=== PATIENT | male | born 1945 | race Caucasian/White ===

== ENCOUNTER 2023-08-18 06:04 | Inpatient (IN) | payer MEDICARE, OTHER, SELFPAY ==
[2023-08-10 09:23] VITALS: BMI 31.8
[2023-08-18] VITALS (14 sets, daily range): BP systolic 131–160; BP diastolic 59–87; PULSE 65–88; RESP 12–23; TEMP 35.7–36.6; O2SAT 92–97; BMI 31.8
--- NOTE | 2023-08-18 | DI.RAD.S_ITS ---
PROCEDURE: XR LUMBAR SPINE 2-3V INDICATIONS: L3-4 L4-5 TLIF TECHNIQUE: 3 views of the lumbar spine were acquired. COMPARISON: [facility], CT, CT LUMBAR SPINE WITHOUT CONTRAST, 07/27/2023, 7:17. [facility], MR, MR LUMBAR SPINE WITHOUT CONTRAST, 06/17/2023, 17:37. [facility], CR, XR LUMBAR SPINE 2 OR 3 VIEWS, 04/28/2022, 16:36. FINDINGS: Intraoperative images demonstrating posterior fusion from L3 through L5 with intervertebral spacers. Hardware is intact. There is good anatomic alignment. IMPRESSION: Intraoperative fusion as above. Dictated by: Jacy Hernandez M.D. on 08/18/2023 at 16:56 Approved by: Jacy Hernandez M.D. on 08/18/2023 at 16:57
[2023-08-18] MEDS: LACTATED RINGERS 1,000 ML 42 ML IV ×3 (07:00→13:49)
[2023-08-18] MEDS: ACETAMINOPHEN 325 MG TABLET 975 MG PO (07:02)
--- NOTE | 2023-08-18 07:36 | PM.PREOP ---
Pre-operative Note Interval Note History & Physical reviewed/Exam performed by Physician: Yes Changes to H&P: No
[2023-08-18] MEDS: CEFAZOLIN 2 GM/100 ML PREMIX 100 ML IV ×3 (07:40→23:21)
--- NOTE | 2023-08-18 08:15 | SUR.OPER ---
Prone on spine table, head in foam head support, padded chest and pelvic supports, gel pad at knees, lower legs supported by pillows; nipples, genitalia and toes free of pressure, arms secured on foam padded arm boards at <90 degrees abduction. Tape over blanket at thigh secured to table.
[2023-08-18] MEDS: BUPIVACAINE 0.25% (PF) 30 ML, EPINEPHrine 0.15 MG INJ (09:00)
[2023-08-18] MEDS: BUPIVACAINE LIPOSOME 266 MG/20 ML VIAL INJ (12:29)
--- NOTE | 2023-08-18 12:44 | PM.OP.1 ---
Operative Date/Time/Diagnoses Date of procedure: 08/18/23 Time of procedure: 07:40 Pre-op diagnosis: 1. L3-4, L4-5 spinal stenosis with neurogenic claudication. 2. L4-5 epidural cyst 3. L3-4, L4-5 foramen stenosis Post-op diagnosis: same Procedure & Clinicians Procedure: 1. L3-4, L4-5 Postero-lateral and posterior interbody fusion 2. L3-4, L4-5 interbody cage placement. 3. L3-4, L4-5 decompressive laminectomy with bilateral facetecomies 4. L4-5 epidural cyst excision with total facetecomy for decompression 5. L3-4, L4-5 Posterior segmental instrumentation 6. [place] of bone marrow from iliac crest 7. Utilization of microsurgical technique and operating microscope 8. Utilization of robotic assisted navigation Same procedure as scheduled: Yes Indications: Patient has been having chronic back pain and worsening lumbar radiculopathy and symptoms of neurogenic claudication. The patient has MRI showing severe spinal stenosis centrally and in the neural foramen bilaterally at L3-4 L4-5 level correlating with the patient's symptoms. The patient also has a large L4-5 epidural facet cyst on the right side causing additional lateral recess and central stenosis. Patient failed multiple conservative management with worsening pain weakness and numbness in his lower extremity. Patient has been having difficulty performing activity of daily living. After discussing risks benefits of treatment options, patient elected proceed with surgery. Surgeon: Hugo Gambino Public Affairs Manager: Elisa Hernandez Click Yes if Unassisted: No Anesthesia Type: General Operative Notes Closure Type: primary Specimen(s): none sent Prosthetic devices, grafts, tissues, transplants, or devices: Globus CREO MIS screws, Rise cages Applied: catheter Estimated Blood Loss (mL): 300 Blood products transfused: none Procedure in detail: Patient was seen in the preoperative area. Risks and benefits of the surgery was discussed with the patient. Informed consent was obtained from the patient and placed in the chart. Surgical site was marked. Patient was taken to the operative room. General anesthesia was administered. Prophylactic antibiotic was given to the patient less than 30 min before the incision was made. Patient was placed into a prone position on the Saleem table. Patient's back was then prepped and draped in the sterile fashion. Time-out was performed at this time. After patient was prepped and draped, patient's PSIS was palpated and marked bilaterally. Small 1 cm incision was made over the PSIS for placement of the reference probes. Two trocar was placed into the PSIS 1 on each side. The reference probe was attached to the trocar of the reference apparatus. At this time the C-arm imaging was used to confirm AP and lateral of L3, L4-L5 vertebrae and merged the C-arm imaging using the Cantimer robotic navigation system with the CT of the lumbar spine. After successful merging was completed and confirmed, skin marker was used to john out the skin incision using the Cantimer robotic arm. Bilateral incision was made at this time. Pre templated trajectory was used and guided using the Cantimer robotic navigation system for bilateral L3 L4, L5 pedicle screw placement. This was done by using the robotic arm to guide the high-speed bur to make a cortical entry point. Next a drill was placed also using the robotic arm and guided using the navigation system drilling partially through bilateral L3, L4, L5 pedicles. Next L3, L4, L5 pedicle screws it was pre templated and measured was placed onto the power commercial driver and inserted into the pedicles bilaterally. After all 6 screws were placed C-arm imaging was taken of both AP and lateral to confirm the placement. Excellent placement of the screws were confirmed and a matched precisely with the pre planned screw placement using the navigation system. MARs retractor was inserted using Quantum Dielectrricsivation guidence. Globus MARS retractors was placed inside the incision and docked onto the L3, L4 lamina. Using microsurgical technique and operating microscope, a L3, L4 laminectomy and L3-4, L4-5 facetectomy was performed using a Kerrison rongeur. The laminectomy and facetectomy was performed in order to decompress patient's cauda equina as well as the nerve roots exiting at the L3-4, L4-5 level. Patient was found have severe central stenosis, lateral recess and neural foramen stenosis which was fully decompressed after the laminectomy facetectomy. More than 75% of the facets were removed during the process of decompression rendering L3-4, L4-5 level grossly unstable and required a fusion procedure at the same time. Additionally, the L4-5 required extended facetectomy on the right side along with laminectomy to access and decompress the epidural cyst. The cyst was removed using Kerrison rongeur and pituitary under direct visualization. A neural probe was used to palpate the epidural space, the space was fully decompressed after the laminectomy facetectomy and cyst excision was performed at both levels of L3-4 L4-5. The disc space at L3-4, L4-5 was identified, and a total diskectomy was performed at L3-4, L4-5 level. The endplates were decorticated using a rasp and shaver. The total diskectomy and decortication was performed at L3-4, L4-5 level in order to to accomplish a L3-4, L4-5 fusion. The local bone from the laminectomy and facetectomy was saved for local bone grafting. After the total diskectomy and decortication was completed, Viacel bone graft material was combined with local bone that was harvested earlier. At this time, a separate skin is incision was made over the iliac crest. A Jamshidi needle was inserted into the iliac crest through a separate skin incision. 5 cc of bone marrow aspiration was obtained through the separate skin incision using a Jamshidi needle from the iliac crest. The bone marrow aspiration was combined with local bone and the Viacel bone grafting material. The bone grafting material was placed into the L3-4, L4-5 interbody space along with expandable cages. One cage each was inserted into the L3-4 L4-5 interbody space along with bone graft material. The cage was expanded to its maximum height using the torque limiting screwdriver. The disc preparation as well as the cage insertion were also performed under navigation guidance. After the cage was placed, AP and lateral C-arm imaging was taken to confirm placement of the cage and excellent position was confirmed. Globus MARS retractor was inserted and docked onto the L3-4, L4-5 posterolateral gutter on the right side. Using the power drill, posterior-lateral decortication was performed at L3-4, L4-5 level until bleeding cortical bone was identified. The remaining bone grafting material was placed into the L3-4, L4-5 posterior lateral gutter he order to accomplish posterolateral fusion at the L3-4, L4-5 level. At this time the tulips were attached to the L3, L4-L5 pedicle screw shanks. After measuring the length of the rods, they were inserted into the tulips of the pedicle screws and locked in place using locking caps and torque limiting screwdriver bilaterally. Total 6 caps and 2 titanium rods was used in order to complete the posterior instrumentation construct. After all the hardware was placed, and confirmed with AP and lateral C-arm imaging, the wound was then irrigated with sterile normal saline and packed with Ray-Saurabh gauze for 3 min to accomplish hemostasis. After the gauze was removed the deep fascia was closed with #1 Vicryl suture. The subcutaneous layer was closed with 2-0 Vicryl. The skin was closed with skin andra. Patient tolerated the procedure well. There were no complications. Neuro monitoring system was used to monitor patient's neurologic status throughout entire procedure. There was no disturbance of the neural monitoring signals throughout the case. The Operation could not have been safely performed without compromising the technical result or length of the procedure, without the assistance of a skilled assistant professor of biology. The assistant professor of biology was medically necessary for proper positioning, retraction and manipulation of instruments, proper exposure, surgical preparation, and manipulation of tissue. Complications: none Post-operative Condition: stable Disposition: PACU Plan for aftercare: Admit to inpatient hospital
[2023-08-18] MEDS: OXYCODONE IR 5 MG TABLET PO ×4 (13:57→23:21)
[2023-08-18] MEDS: HYDROMORPHONE 0.5 MG INJ IV (14:32)
[2023-08-18] MEDS: LACTATED RINGERS 1,000 ML 125 ML IV ×2 (14:35→21:48)
--- NOTE | 2023-08-18 15:40 | OT.IPNOTE ---
Went to attempt OT eval and pt still groggy and not able state his home set-up. Able to notify pt's nurse of his complaints of neck pain. To check on the pt tomorrow.
[2023-08-18] MEDS: ONDANSETRON 4 MG/2 ML INJ IV (15:59)
[2023-08-18] MEDS: ACETAMINOPHEN 325 MG TABLET 650 MG PO ×2 (17:36→23:21)
--- NOTE | 2023-08-18 19:02 | PC.NURSE ---
Day shift: Offered ambulation with patient this evening before dinner. Patient stated he wanted to wait a bit - he didn't feel ready to get out of bed. Allen patent. Pain well controlled with oral pain medications. Dressing on back CDI. Pt had one episode of n/v, IV zofran given. Pt stated he felt better. Pt complains of mild neck pain which comes and goes and improves with ice and repositioning. Will continue to monitor.
[2023-08-18] MEDS: SENNOSIDES 8.6 MG TABLET 17.2 MG PO (20:34)
[2023-08-18] MEDS: DOCUSATE 100 MG CAPSULE PO (20:34)
[2023-08-19] MEDS: ACETAMINOPHEN 325 MG TABLET 650 MG PO (04:33)
[2023-08-19] MEDS: OXYCODONE IR 5 MG TABLET PO ×4 (04:34→16:05)
[2023-08-19 05:33] LABS: Hematocrit 35.7 % (41-53); Hemoglobin 12.2 g/dL (13.5-17.5)
[2023-08-19] MEDS: LACTATED RINGERS 1,000 ML 125 ML IV (06:03)
[2023-08-19] MEDS: ONDANSETRON 4 MG/2 ML INJ IV (06:47)
[2023-08-19 08:00] VITALS: BP 140/58; PULSE 73; RESP 16; TEMP 36.4; O2SAT 96
[2023-08-19] MEDS: DOCUSATE 100 MG CAPSULE PO (09:12)
[2023-08-19] MEDS: ATORVASTATIN 20 MG TABLET PO (09:12)
[2023-08-19] MEDS: hydroCHLOROthiazide 25 MG TABLET PO (09:12)
[2023-08-19] MEDS: METFORMIN HCL 500 MG TABLET 1500 MG PO (09:12)
[2023-08-19] MEDS: lisinopriL 20 MG TABLET 40 MG PO (09:12)
--- NOTE | 2023-08-19 10:20 | OT.IP.EVAL ---
Current Diagnoses Spondylolisthesis, lumbar region (08/18/23) Spinal stenosis, lumbar region with neurogenic claudication (08/18/23) Surgery Performed Operation Date: 08/18/23 07:45 Actual Procedures p L3-4, L4-5 TLIF with posterior instrumentation - robot - Hugo Gambino MD Past Medical History (Last Updated 08/10/23 @ 10:16 by Pina Claros, RN) Diabetes Hearing loss HLD (hyperlipidemia) HTN (hypertension) Myocardial infarct, old (~2013) Numbness and tingling of both feet Sciatica Skin cancer (~1973) Spinal stenosis Surgical History (Last Updated 08/10/23 @ 10:13 by Pina Claros RN) History of cataract extraction Hx of cholecystectomy Hx of unilateral orchiectomy (~1978) Occupational Therapy Inpatient Evaluation/Re-Eval M1 PT/OT-IP Prior Functional Status Start: 08/19/23 08:03 Freq: NEEDED Status: Active Protocol: Document 08/19/23 11:11 [facility] (Rec: 08/19/23 11:25 [facility] [id number]) Medical Review Prior Functional Status Medical History Reviewed Yes Diet/Fluid Consistency Regular Communication WNL Mobility and Gait I with all mobility and gait without AD but had pain. Activities of Daily Living and IADL's pt was able to perform all ADL 's I without AD, caregiver for Social History Household Members spouse Living Arrangements House Number of Floors (Floors) Two Floors Number of Stairs To Enter/Railing? 3 steps with right rail in and 2 steps no rails from the garage Split level house with add-on Home Environment High Toilet,Walk in Shower, Bidet Home Equipment Front Wheel Walker,Straight Cane,Raised Toilet Seat Without Armrests,Shower Seat without Backrest,Hand Held Shower,Software Engineer Advisor,Sock Aid Employment Status Retired Additional Social History Comment 3 steps going in main entrance with R railing and 2 steps going in back of house without railing. Pt stated that his daughter is planning on installing a hand held shower currently Pt's daughter to stay with the pt for one week and if needing other family member can assist afterwards. M2 OT-IP Current Condition Start: 08/19/23 11:10 Freq: Status: Active Protocol: Document 08/19/23 11:11 [facility] (Rec: 08/19/23 11:25 [facility] [id number]) Occupational Therapy Current Condition Current Condition Evaluation Date 08/19/23 Treatment Diagnosis S/P L 3-4, L4-5 TLIF Post Operative Precautions Lumbar Precautions Log Roll,No Twisting,Limit Bending,Lifting Restriction of 10 lbs,Gait Belt above Incisional Area M3 OT- IP Subjective and Pain Start: 08/19/23 11:10 Freq: Status: Active Protocol: Document 08/19/23 11:11 [facility] (Rec: 08/19/23 11:25 [facility] [id number]) OT- Subjective Occupational Therapy Visit Type Type Initial Evaluation Visit Start Time 09:10 Visit Stop Time 10:20 Occupational Therapy Visit Comments Patient Comments Pt agreed to do a shower and pt's daughter present for caregiver training. Patient/Caregiver Goals To go home. OT Pain Assessment Pain When Pain Assessed During Mobility Pain Present Pain Present Pain Reported Location lower back Intensity 4 Scale Used Numeric (0 - 10) M4 OT- IP ADL's Start: 08/19/23 11:10 Freq: Status: Active Protocol: Document 08/19/23 11:11 [facility] (Rec: 08/19/23 11:25 [facility] [id number]) OT PFW-[id number]-[id number] General Evaluation Self-Feeding Ability Independent OT ADL-Grooming General Evaluation Grooming Ability Standby Assistance Areas Needing Assistance Retrieving/Set-up of Grooming Items Comments OT Grooming Comments Able to do while standing. OT ADL-Oral Care General Eval Oral Care Ability Independent Areas of Assistance Retrieving/Set-Up of Items Comments Oral Care Comments Educated to hinge at his hips or just spit into a cup. OT ADL-Dressing General Eval Upper Body Dressing Ability Minimal Assistance Lower Body Dressing Ability Maximum Assistance Areas Needing Assistance Socks,Shoes Comments OT Dressing Comments Pt able to practice use of rn icu and sock aid for LB dressing needs. Pt needing assist to help slip on his shoes as his feet are a little swollen. OT ADL-Toileting General Evaluation Toileting Ability Standby Assistance Comments OT Toileting Comments Pt will need assist if having a bowel movement as unable to reach appropriately or use of bidet. OT ADL-Bathing Bathing Type Bathing Type Shower General Evaluation Bathing Ability Moderate Assistance Areas Needing Assistance Wash/Dry Back,Wash/Dry Perineal Area,Wash/Dry Lower Extremities Comments OT Bathing Comments Educated to sit for showering. Pt has a standard FWW that he can put in the shower against the wall to assist while standing for showering needs. Suggested use of long thin towel for pericare needs or assist. pt's daughter to install a HHSP. M5 OT- IP IADL's Start: 08/19/23 11:10 Freq: Status: Active Protocol: Document 08/19/23 11:11 [facility] (Rec: 08/19/23 11:25 [facility] [id number]) OT-Instrumental Activities of Daily Living Home Safety Awareness Awareness of Need for Assistance at Home Good Awareness Ability to Problem Solve Emergency Able to Problem Solve Situations Home Safety Comments Pt's daughter to stay to assist for one week. Medication Management Medication Management No Deficits Identified Money Management Money Management No Deficits Identified Meal Preparation Meal Preparation Caregiver Provides Assist Field Reviewer Field Reviewer Caregiver Provides Assist M6 OT- IP Functional Cognition Start: 08/19/23 11:10 Freq: Status: Active Protocol: Document 08/19/23 11:11 [facility] (Rec: 08/19/23 11:25 [facility] [id number]) Cognitive Factors Limiting Selfcare Function Cognitive Ability Level of Alertness Alert Patient Orientation Name,Age,Birthday,Month,Date, Year,Day of Week,Place, Situation Attention Span Ability Capable of Focused Attention, Capable of Sustained Attention Ability to Follow Commands Able to Follow One Step Commands Memory Description No Deficits Noted Safety Awareness Underestimates Need for Assistance Cognitive Comments Cognitive Assessment Comments Pt able to state and follow all back precautions for ADL and mobility needs. Pt needing cues to use the FWW at all times, pt tends to try a take a few steps without it. OT- Vision and Hearing OT- Hearing Assessment OT- Hearing Assessment Hearing Impaired OT- Vision Assessment Visual Acuity Glasses For Reading Visual Attentiveness WFL Occular Pursuits WFL M7 OT- IP Mobility and Balance Start: 08/19/23 11:10 Freq: Status: Active Protocol: Document 08/19/23 11:11 [facility] (Rec: 08/19/23 11:25 [facility] [id number]) OT- Bed Mobility Assessment Supine to Sit Supine to Sit Assist Standby Assistance Sit to Supine Sit to Supine Assist Standby Assistance OT-Transfer Assessment Sit to and From Stand Sit to and from Stand Standby Assistance,Contact Guard Assistance Transfers Transfer Ability Standby Assistance,Contact Guard Assistance Technique Transfer Destination Bed,Car,Shower Stall Transfer Technique Stand Step Pivot Devices Transfer Assistive Devices Gait Belt,Front Wheeled Walker Comments Mobility Comments Pt initially needing CGA and vc for transitions and then SBA with FWW. Able to train pt 's daughter to lane/doff the gait belt and how to assist the pt. OT- Balance Assessment Sitting Balance and Reactions Static Sitting Balance Ability Good Dynamic Sitting Balance Ability Good Standing Balance and Reactions Static Standing Balance Ability Fair Dynamic Standing Balance Ability Fair M8 OT- IP Objective Assessments Start: 08/19/23 11:10 Freq: Status: Active Protocol: Document 08/19/23 11:11 [facility] (Rec: 08/19/23 11:25 [facility] [id number]) OT Gross Range of Motion Upper Extremity Range of Motion Assessment Within Functional Limits OT Strength Upper Extremity Strength Assessment Within Functional Limits M9 OT- IP Assessment and Plan Start: 08/19/23 11:10 Freq: Status: Active Protocol: Document 08/19/23 11:11 [facility] (Rec: 08/19/23 11:25 [facility] [id number]) OT Summary Assessment and Plan Potential Rehabilitation Potential Excellent Analytic Complexity at Evaluation Low Summary OT Impairments Pain,Balance,Functional Mobility,Dressing,Toileting, Bathing,Toilet Transfers, Shower Transfers Progress Towards Goals Progressing Toward Goals Assessment Summary Pt low complexity and main barriers are pain, steps and needing MIN safety cue to use the FWW at all times. Pt's daughter trained to assist with ADl and mobility needs. Pt looking to go home when medically stable. Goals Self-Feeding Goal Independent Grooming Goal Independent Dressing Goal Independent,Software Engineer Advisor,Sock Aid Toileting Goal Independent Bathing Goal Standby Assistance Toilet Transfer Goal Independent Shower Transfer Goal Contact Guard Assistance Patient/Caregiver Education Goal Demonstrate Post-Op Precautions Days to Meet Goals 5 Frequency of Treatment Frequency Of Treatment Once a Day Treatment Plan OT Treatment Plan ADL Training,Functional Mobility,Patient/Family Education,Discharge Planning Discharge Recommendations OT Discharge Recommendations Home with 31/08 Assist Available Transportation Needs at Discharge Private Vehicle
[2023-08-19] MEDS: SODIUM CHLORIDE 0.9% FLUSH 10 ML IV (10:26)
--- NOTE | 2023-08-19 11:03 | PT.IIE ---
Addendum entered and electronically signed by Traci Valera PT 08/19/23 11:39: PT provides direct superv during PT assessment Addendum entered and electronically signed by Luis Espitia 08/19/23 11:04: Esign to doctor Original Note: Current Diagnoses Spondylolisthesis, lumbar region (08/18/23) Spinal stenosis, lumbar region with neurogenic claudication (08/18/23) Surgery Performed Operation Date: 08/18/23 07:45 Actual Procedures p L3-4, L4-5 TLIF with posterior instrumentation - robot - Hugo Gambino MD Surgical History (Last Updated 08/10/23 @ 10:13 by Pina Claros, RN) History of cataract extraction Hx of cholecystectomy Hx of unilateral orchiectomy (~1978) Medical History (Last Updated 08/10/23 @ 10:16 by Pina Claros, RN) Diabetes Hearing loss HLD (hyperlipidemia) HTN (hypertension) Myocardial infarct, old (~2013) Numbness and tingling of both feet Sciatica Skin cancer (~1973) Spinal stenosis Physical Therapy Inpatient Evaluation/Re-Eval M1 PT/OT-IP Prior Functional Status Start: 08/19/23 08:03 Freq: NEEDED Status: Active Protocol: Document 08/19/23 08:40 JG (Rec: 08/19/23 09:43 JG [id number]) Medical Review Prior Functional Status Medical History Reviewed Yes Diet/Fluid Consistency Regular Communication WNL Mobility and Gait I with all mobility and gait without AD Activities of Daily Living and IADL's pt was able to perform all ADL 's I without AD, caregiver for Social History Household Members spouse Living Arrangements House Number of Floors (Floors) Two Floors Number of Stairs To Enter/Railing? 3 Split level house with add-on Home Environment High Toilet,Walk in Shower, Bidet Home Equipment Straight Cane,Raised Toilet Seat Without Armrests,Shower Seat without Backrest,Hand Held Shower Employment Status Retired Additional Social History Comment 3 steps going in main entrance with R railing and 2 steps going in back of house without railing. Pt stated that his daughter is planning on installing a hand held shower currently M2 PT-IP Current Condition Start: 08/19/23 08:03 Freq: NEEDED Status: Active Protocol: Document 08/19/23 08:40 JG (Rec: 08/19/23 09:43 J [id number]) Physical Therapy Current Condition Current Condition Evaluation Date 08/19/23 Treatment Diagnosis L3-L4, L4-L5 spinal stenosis s /p TLIF M3 PT-IP Subjective Start: 08/19/23 08:03 Freq: NEEDED Status: Active Protocol: Document 08/19/23 08:40 JG (Rec: 08/19/23 09:43 J [id number]) Subjective Physical Therapy Visit Type Type Initial Evaluation Visit Start Time 08:40 Visit Stop Time 09:20 Number of MONOGRAM MAKER Visits 0 Physical Therapy Visit Comments Patient Comments Pt stated that he felt nauseated getting OOB after surgery for the first time yesterday Therapy Pain Assessment Pain When Pain Assessed At Rest Pain Present Pain Present Pain Reported Location lower back Intensity 4 Scale Used Numeric (0 - 10) Description Tingling,With Movement Pain Management Techniques Distraction,Re-positioning, Timing of Activity with Medications M4 PT-IP Mobility and Gait Start: 08/19/23 08:03 Freq: NEEDED Status: Active Protocol: Document 08/19/23 08:40 JG (Rec: 08/19/23 09:43 J [id number]) PT-Bed Mobility Assessment Rolling Type of Rolling Roll to Right,Roll to Left Level of Assist Independent Supine to Sit Supine to Sit Independent Sit to Supine Sit to Supine Independent Scooting Scooting to Edge of Bed Independent Scooting Up and Down in Bed Independent PT-Transfer Assessment Sit to and From Stand Sit to and from Stand Independent,Use of Upper Extremities Equipment Transfer Assistive Device Gait Belt,Front Wheeled Walker Orthotic/Prosthetic Devices or Brace: No Transfers Transfer Destination Bed Transfer Technique Ambulation Transfer Ability Level of Assist Independent,Standby Assistance Comments Mobility Comments Pt needs v/c for hand placement and pushoff to sit up in bed. At the start of PT eval, SBA and progressed to I with RW after training and several transfers Gait Assessment Gait Gait Assistance Required: Independent,Standby Assistance ,1 Person Assist Distance (Feet) 150 Able to Maintain Weight Bearing Status Yes During Gait Assistive Devices Assistive Device Gait Belt,Front Wheeled Walker Orthotic/Prosthetic Devices or Brace: No Gait Deviations General Gait Pattern Flexed Trunk Factors Limiting Gait Function Factors Limiting Gait Function Decreased Activity Tolerance, Decreased Strength,Limited Range of Motion,Pain,Poor Balance Comments Gait Comments Pt is able to ambulate 150x2 in order to access stair training. Pt demonstrated at step to gait pattern first 50 feet and transitioned to step through gait pattern until stairs were reached. Pt is able to walk short distance with CGA with no FWW for 50 ft and made it back to room with SBA to mod I with FWW, increasing I with gait with AD with increased gait distance Stair Climbing Assessment Evaluation Level of Assist On Stairs Standby Assistance,Contact Guard Assistance,1 Person Assistance Devices Stair Climbing Assistive Devices Right Railing Technique/Endurance Stair Climbing Direction Ascend and Descend Stair Climbing Technique Step to Step Number of Steps Climbed 3 Query Text: Stair Climbing Set # Repetitions (reps) 1 Comments Stair Climbing Comments Pt completed stair training using/facing R railing, SBA to CGA and will have daughter assist if needed at d/c and verbally reviewed with her when she arrived after eval PT-Balance Assessment Sitting Balance and Reactions Static Sitting Balance Ability Normal Dynamic Sitting Balance Ability Normal Standing Balance and Reactions Static Standing Balance Ability Good Dynamic Standing Balance Ability Good Device Used RW or none M5 PT-IP Objective Assessments Start: 08/19/23 08:03 Freq: NEEDED Status: Active Protocol: Document 08/19/23 08:40 LYDIA (Rec: 08/19/23 09:43 LYDIA [id number]) Orientation Orientation/Cognition Level of Alertness Alert Orientation Name,Age,Birthday,Month,Date, Year,Day of Week,Place, Situation Language Function Ability No Deficits Noted Safety Awareness Understands Safety Issues Memory Description No Deficits Noted Comments Pt understood and was able to recall s/p surgery back precuations Gross Range of Motion Upper Extremity ROM Impairments Defer to OT Lower Extremity ROM Assessment Within Functional Limits Strength Lower Extremity Strength Assessment Within Functional Limits Comments Strength Comments Weakness noted R>L in LE with LAQ but strength is functional with gait with LRAD Sensation Assessment Sensation Gross Sensation WNL Light Touch Intact Sensation Description Tingling Comments Sensation Comments Pt noted tingling in feet B that is chronic M6 PT-IP Treatment Start: 08/19/23 08:03 Freq: NEEDED Status: Active Protocol: Document 08/19/23 08:40 LYDIA (Rec: 08/19/23 09:43 LYDIA [id number]) Physical Therapy Treatment Education Education Provided Precautions,Post-Op Packet, Safety Equipment Issued Equipment Type and Company FWW ordered and issued to pt Other Treatments Other Treatment Performed LAQ, log rolling, family education after eval when they arrived, cues for use of RW vs cane and how to use one rail, facing it M7 PT-IP Assessment and Plan Start: 08/19/23 08:03 Freq: NEEDED Status: Active Protocol: Document 08/19/23 08:40 JPrimitivo (Rec: 08/19/23 09:43 JPrimitivo [id number]) PT Summary Assessment and Plan Potential Rehabilitation Potential Excellent Status of Condition at Evaluation Stable Summary Impairments Pain,ROM,Strength,Sensation, Gait,Activity Tolerance Assessment Summary Pt is s/p TLIF. He does well with transfers, gait and steps after training today. His gait is best with RW and since he only has a standard walker at home, issued one today and SW to bring in script. Family arrives after eval and PT reviews all findings with them . Pt is safe to d/c home with daughter assistance and RW. Recommend OPPT as surgeon agrees. Frequency of Treatment Frequency Of Treatment Discharge Precautions Lumbar Precautions Log Roll,No Twisting,Limit Bending,Lifting Restriction of 10 lbs,Gait Belt above Incisional Area Weight Bearing Status Weight Bearing Status Weight Bear as Tolerated Recommendations To Nursing Amount of Assist Needed Standby Assistance Discharge Recommendations PT Discharge Recommendations Home with Assistance, Outpatient PT Equipment Needed for Home Before FWW issued Discharge Transportation Needs at Discharge Private Vehicle
--- NOTE | 2023-08-19 14:12 | CM.DANOTE ---
Addendum entered by ZO Alas 08/19/23 14:15: ADD: Correction, no discharge order in. Patient will need FWW upon discharge, order placed. Original Note: Initial DCP Assessment Note Pt is a 78 yo male, resident of [facility], [place], now POD#1 from TLIF PCP: Abelino Hdz Payer: [facility]/Jeniffer swanson [place] Reviewed chart, pt discussed in multidisciplinary rounds this morning. Therapy has cleared pt for return home w/family to assist and pt has planned for home, DC order from Ortho has already been initiated this morning. No barriers identified at this time to patient's safe discharge home w/family to assist; close outpatient f/u recommended. CM team will plan to follow clinical course closely in case any DC needs or concerns arise. ZO Ko Discharge Planning/Care Management CM Discharge Assessment Start: 08/19/23 13:48 Freq: Status: Active Protocol: Document 08/19/23 13:48 MISAEL (Rec: 08/19/23 14:12 MISAEL [id number]) Discharge Planning Assessment Assigned Catalyst Unit Operator ZO Sneed DPOA/Assigned Designee Name Teresa Anne, daughter Contact Information [phone] Advance Directives? Yes Advance Directives on File No History Provided By Patient,Family Member,Medical Record Prior Living Arrangements House Household Members spouse Type of transporation used prior to Drives own vehicle admit Independent with ADL's Yes Is patient alert and oriented? Yes Barriers to Discharge No Discharge Plan Home Transportation Arrangement Family pov Referrals Initiated None needed
--- NOTE | 2023-08-19 16:30 | PM.DS.1 ---
History of Present Illness History of Present Illness Chief complaint: INPT Narrative: Lalit is a very pleasant 78 year old male who is POD#1 s/p TLIF by Dr. Gambino. Patient reports he is doing well, worked w/ PT successfully and was even able to take a shower today. He lives at home w/ his and his daughter will be staying with him for 5 days postop, longer if needed. He has a walker at home for post-op use. Still having moderately severe pain but states it is well controlled w/ Oxycodone. Urinating well without issue. Denies fever, chills, chest pain, SOB, nausea, vomiting. Procedure & Clinicians Procedure: 1. L3-4, L4-5 Postero-lateral and posterior interbody fusion 2. L3-4, L4-5 interbody cage placement. 3. L3-4, L4-5 decompressive laminectomy with bilateral facetecomies 4. L4-5 epidural cyst excision with total facetecomy for decompression 5. L3-4, L4-5 Posterior segmental instrumentation 6. [place] of bone marrow from iliac crest 7. Utilization of microsurgical technique and operating microscope 8. Utilization of robotic assisted navigation Same procedure as scheduled: Yes Indications: Patient has been having chronic back pain and worsening lumbar radiculopathy and symptoms of neurogenic claudication. The patient has MRI showing severe spinal stenosis centrally and in the neural foramen bilaterally at L3-4 L4-5 level correlating with the patient's symptoms. The patient also has a large L4-5 epidural facet cyst on the right side causing additional lateral recess and central stenosis. Patient failed multiple conservative management with worsening pain weakness and numbness in his lower extremity. Patient has been having difficulty performing activity of daily living. After discussing risks benefits of treatment options, patient elected proceed with surgery. Surgeon: Hugo Gambino Traveling Electrician: Elisa Hernandez Click Yes if Unassisted: No Anesthesia Type: General Discharge Providers Provider Date of admission: 08/18/23 06:04 Discharge Date: 08/19/23 Consults: 08/18/23 14:00 Consult to Occupational Therapy Evaluate & Treat Comment: Physician Instructions: Evaluate and treat Consult to Physical Therapy Evaluate & Treat Comment: Physician Instructions: Evaluate and Treat 08/19/23 09:29 Consult to Physical Therapy Evaluate & Treat Comment: Physician Instructions: FWW for home use Discharge provider: Elisa Hernandez PA-C Summary Hospital Course Discharge Diagnosis: stable s/p TLIF. Hospital Course: uncomplicated hospital course Exam Vital Signs (past 8 hours): Oxygen Delivery Method Room Air Oxygen Flow Rate 0 Narrative Exam Narrative: Patient lying comfortably in bed during our interview today. No acute distress. AOx3. 5/5 strength with DF, PF, EHL bilaterally. Gross sensation intact throughout bilateral lower extremities. Calves soft and non-tender bilaterally. Brisk capillary refill, pulses intact. Post-surgical dressings are clean, dry and intact over the left/right hip/knee without drainainge. Objective Labs 08/19/23 04:20 Labs: Laboratory Results - last 24 hr 08/19/23 04:20 Hgb 12.2 L Hct 35.7 L PFSH Medical History (Updated 08/10/23 @ 10:16 by Pina Claros RN) Hearing loss Skin cancer (~1973) Spinal stenosis Diabetes Myocardial infarct, old (~2013) HLD (hyperlipidemia) HTN (hypertension) Sciatica Numbness and tingling of both feet Surgical History (Updated 08/10/23 @ 10:13 by Pina Claros RN) Hx of unilateral orchiectomy (~1978) Hx of cholecystectomy History of cataract extraction Social History household members: spouse Smoking Status: Former smoker alcohol intake: former Discharge Assessment & Plan Assessment and Plan Assessment: Stable status post TLIF Plan of Treatment: 1) Plan to discharge to home today with family. 2) Continue multimodal pain management. Postop prescriptions were sent to patient's pharmacy today. 3) Mechanical DVT prophylaxis. He may also resume his preop aspirin in 3 days. 4) maintain BLT restrictions for 6 weeks. 5) Keep dressing intact, clean, dry until 2 week postop appointment. No soaking the incision site in pools or tubs. No topical ointments or creams to the incision site. 6) Follow up at [facility] in 2 weeks for a postop appointment, staple removal and wound check. All patient's questions were answered, they demonstrates understanding and are in agreement with the plan. Call our office if any questions or concerns arise. Discharge Plan Discharge Plan Patient Disposition: Home Provider Discharge Comment: You can resume your Aspirin on 08/22/23 Discharge orders & Medications Prescriptions: New acetaminophen 325 mg Tablet 650 mg PO Q6H PRN (Reason: Fever/Mild Pain (1-3)) Qty: 90 1RF docusate sodium 100 mg Capsule 100 mg PO BID Qty: 30 1RF ondansetron 4 mg Tablet,Disintegrating 4 mg sublingual Q4HR PRN (Reason: Nausea) Qty: 10 0RF oxycodone 5 mg Tablet 5 mg PO Q4-6H PRN (Reason: Pain, Moderate (4-6)) Qty: 30 0RF Continued metformin 500 mg Tablet 1,500 mg PO DAILY lisinopril-hydrochlorothiazide 20-12.5 mg Tablet 2 tab PO DAILY aspirin 325 mg Tablet 325 mg PO DAILY pioglitazone 45 mg Tablet 45 mg PO DAILY simvastatin 40 mg Tablet 40 mg PO DAILY Follow up/Referrals: Hugo Gambino MD [Physician] - 08/31/23 1:00 pm (Appt:08/30 @ 1:00 with Yolanda cooper @ [facility] ) Diet/Activity/Treatments Diet: Diet as Tolerated Activity: No deep bending, lifting or twisting for 6 weeks. Skin/Wound/Dressing Care Report to your healthcare provider any signs of infection, such as:: chills, fever, night sweats, unusual drainage and unusual redness Dressing: Keep dressing intact, clean and dry until 2 week post-op appointment. No soaking the incision site in pools or tubs. No topical ointments or creams to the incision site. Visit Report/Discharge Packet Instructions: How to Prevent Falls, DI for Prescription Opioid Use, Stool Softeners, DI for Transforaminal Lumbar Interbody Fusion Stand Alone Forms: Patient Portal/API, Stroke Signs & Symptoms, Surgery Discharge
--- NOTE | 2023-08-19 17:19 | PC.NURSE ---
Day shift: Paperwork signed and all question answered. Left unit at approx 1700 via WC. Taken by this inspector automatic typewriter. Daughter is driving him home. Tolerated getting in car well. Has all personal belongings. New MD scripts sent electronic to Pt's pharmacy. Pt supplied with some additional dressing to reinforce if needed.
== END 2023-08-19 17:21 | disposition home or self-care (01) | DRG 455 ==
PROVIDERS: Admitting Provider Orthopaedic Surgery Orthopaedic Surgery of the Spine; Referring Provider Orthopaedic Surgery Orthopaedic Surgery of the Spine; Visit Provider Orthopaedic Surgery Orthopaedic Surgery of the Spine
PROC: 0SG10AJ Fusion of 2 or more Lumbar Vertebral Joints with Interbody Fusion Device, Posterior Approach, Anterior Column, Open Approach (ICD-10-PCS; principal; 2023-08-18 07:45)
DX: M48.062 Spinal stenosis, lumbar region with neurogenic claudication (principal); M43.16 Spondylolisthesis, lumbar region; E78.5 Hyperlipidemia, unspecified; I10 Essential (primary) hypertension; E11.9 Type 2 diabetes mellitus without complications; Z79.4 Long term (current) use of insulin; Z87.891 Personal history of nicotine dependence
CPT/HCPCS: 36415; 72100; 76000; 82962; 85014; 85018; 97116; 97161; 97165; 97530; 97535; C1831; C9290; J0171; J0330; J0690; J1170; J2405; J2704